=== PATIENT | male | born 1985 | race Caucasian/White ===

== ENCOUNTER 2021-02-13 10:57 | Emergency (ER) | payer BC, SELFPAY ==
[2021-02-13 11:04] VITALS: BP 145/92; PULSE 92; RESP 16; TEMP 37
--- NOTE | 2021-02-13 11:30 | ED.ANXIETY ---
HPI - Anxiety General Chief Complaint: Anxiety Stated Complaint: ANXIETY Source: patient and RN notes reviewed History of Present Illness HPI narrative: This is a 35-year-old male that presented to urgent care with complaints of feeling anxious. According to patient Thursday he started to feel anxious and was unable to relieve anxiety. Patient notes that he did recently take 5 days of prednisone for sinus infection. He is presently on Lexapro for anxiety. He notes that his heart felt as if it was racing he did not record his heart rate on his cell phone the highest heart rate that I saw was 112. Patient does not have a cardiac history and believes that his symptoms are related to his anxiety. He did try to contact his primary care physician who manages his anxiety she is currently out of town. I informed patient I will give him a short dose of antianxiety medication but he will need to follow-up with his primary care physician. The patient denies SOB, CP, palpitation, extremity numbness, lightheadedness, dizziness, constipation, diarrhea, chills, or fever. EKG completed sinus rhythm heart rate of 78 MD complaint: anxiety and heart racing Related Data Home Medications Medication Instructions Recorded Confirmed escitalopram oxalate mg 02/13/21 Allergies Allergy/AdvReac Type Severity Reaction Status Date / Time No Known Allergies Allergy Verified 02/13/21 11:07 Review of Systems Review of Systems: A 14 organ system Review of Systems was performed and pertinent positives included in the HPI, otherwise remaining ROS is negative. [facility] Family History Family History (Updated 02/13/21 @ 11:33 by GERHARD Beltre) Other Family history non-contributory Exam Narrative: GENERAL: This is a well-nourished, well-developed patient, in no apparent distress. HEAD: normocephalic, atraumatic. EYES: PERRL. Sclera clear/white. Vision is grossly intact. EARS: External ears normal, auditory canals clear and without drainage, TMs normal without perforation. Hearing grossly intact. NOSE: External nose normal with no obvious nasal discharge, nares without redness, no rhinorrhea. THROAT: Mucous membranes moist, posterior pharynx clear. NECK: Neck supple, non-tender without lymphadenopathy, masses or thyromegaly. CARDIOVASCULAR: Regular rate and rhythm without murmurs, gallops, or rubs. RESPIRATORY: Clear to auscultation. Breath sounds equal bilaterally. No wheezes, rales, or rhonchi. GASTROINTESTINAL: Abdomen soft, non-tender, nondistended. Bowel sounds are active. No hepato-splenomegaly, or palpable masses. No guarding. SKIN: warm, intact with no suspicious lesions or rash, good texture and turgor. NEURO: awake, alert, and oriented to person, place and time. There were no obvious focal neurologic abnormalities. Steady gait EXTREMITIES: Normal range of motion. No edema. No calf tenderness. Negative Homans sign bilaterally. BACK: Nontender without deformity or crepitance. No flank tenderness. Course Course Emergency Course: Patient will be given a short dose of Ativan hydroxyzine he will need to follow-up with his primary care physician Vital Signs Vital signs: Vital Signs Temperature 98.6 F 02/13/21 11:04 Pulse Rate 92 02/13/21 11:04 Respiratory Rate 16 02/13/21 11:04 Blood Pressure 145/92 H 02/13/21 11:04 Temperature 98.6 F 02/13/21 11:04 Pulse Rate 92 02/13/21 11:04 Respiratory Rate 16 02/13/21 11:04 Blood Pressure 145/92 H 02/13/21 11:04 MDM - Anxiety Differential Diagnosis Differential diagnosis: Likely hyperventilation, panic disorder and acute anxiety Discharge Plan Discharge Clinical Impression: Acute anxiety Patient Disposition: Home, Self-Care Condition: Stable Instructions: Antibiotic Form, Anxiety (ED) Additional Instructions: What can be done to prevent this health problem? Learn to manage stress. Use relaxation methods like reflection, deep breathing, and muscl
--- NOTE | 2021-02-13 11:49 | ECG_ITS ---
Measurements Intervals [place] Rate: 78 P: 58 NC: 146 QRS: 59 QRSD: 89 T: 36 QT: 343 QTc: 391 Interpretive Statements SINUS RHYTHM MINIMAL Q WAVES- INFERIOR LEADS BORDERLINE ECG Electronically Signed On 02-13-2021 14:15:57 CDT by Jordin Hilton D.O.
== END 2021-02-13 11:39 | disposition home or self-care (01) ==
PROVIDERS: Emergency Provider Nurse Practitioner; PCP Family Medicine
DX: F41.9 Anxiety disorder, unspecified (principal)
CPT/HCPCS: 93005; 99213; G0463

== ENCOUNTER → 2021-04-01 09:13 | Outpatient (CLI) | payer BC, SELFPAY ==
--- NOTE | ~2021-04-01 | CT_ITS ---
EXAMINATION: CT sinus wo con DATE: 04/01/2021 09:37 INDICATION: Allergies. TECHNIQUE: Computed tomography (CT) of the paranasal sinuses was performed without intravenous contra st. The dose-length product was 295.05 mGy-cm. Automated exposure control and iterative reconstructio n technique were employed. COMPARISON: None FINDINGS: Paranasal sinuses and mastoids are pneumatized. There is mild mucosal thickening of the eth moid sinuses. No air-fluid levels. No mucoperiosteal reaction. Ostiomeatal units are patent. Rightwar d nasal septal deviation. IMPRESSION: 1. Mild ethmoid sinus disease. 2: Rightward nasal septal deviation. Reviewed, dictated and finalized at location B.
== END ==
PROVIDERS: PCP Family Medicine; Visit Provider Otolaryngology
DX: J01.90 Acute sinusitis, unspecified (principal); T78.40XA Allergy, unspecified, initial encounter; J32.0 Chronic maxillary sinusitis; J34.2 Deviated nasal septum; J34.3 Hypertrophy of nasal turbinates; J34.89 Other specified disorders of nose and nasal sinuses; R09.81 Nasal congestion; J32.2 Chronic ethmoidal sinusitis
CPT/HCPCS: 70486

== ENCOUNTER 2024-06-16 18:16 | Emergency (ER) | payer BC, SELFPAY ==
--- NOTE | ~2024-06-16 | XR_ITS ---
XR hand LT 2V Ordering provider: Yocasta Flowers History: . FALL DEFORMITY . Comparison: None. FINDINGS: BONES: Fracture in the distal metaphysis of the left radius with posterior angulation. Fracture of th e ulnar styloid is seen with displacement. Possible triquetral fracture seen posteriorly JOINT SPACES: Well maintained. SOFT TISSUES: Unremarkable. IMPRESSION: Fracture distal radius metaphysis with fracture in the ulnar styloid. Possible fracture in the triquetral bone. Reviewed, dictated and finalized at location A. F MACHINE OPERATOR
--- NOTE | ~2024-06-16 | XR_ITS ---
XR wrist LT 2V Ordering provider: John Dejesus MD History: . reduction . Comparison: June 16, 2024 FINDINGS: BONES: Fracture in the distal metaphysis of the left radius with improved alignment. Other fractures are unchanged. JOINT SPACES: Well maintained. SOFT TISSUES: Normal. IMPRESSION: Improved alignment of the fractures in the distal metaphysis of the left radius Reviewed, dictated and finalized at location A. TENANCE AIDE
--- NOTE | ~2024-06-16 | XR_ITS ---
XR wrist LT 2V Ordering provider: Yocasta Flowers History: . FALL, DEFORMITY . Comparison: None. FINDINGS: BONES: Fracture of the distal metaphysis of the left radius with posterior angulation.Fracture of the ulnar styloid with displacement. Highly suggestive fracture of the triquetral bone. JOINT SPACES: Well maintained. SOFT TISSUES: Normal. IMPRESSION: Fracture distal radius metaphysis. Fracture ulnar styloid Possible fracture of the triquetral bone. Reviewed, dictated and finalized at location A. ORY MACHINE COMPUTER OPERATOR
[2024-06-16 19:02] VITALS: BP 167/110; PULSE 93; RESP 20; TEMP 36.7; O2SAT 100
[2024-06-16] MEDS: HYDROmorphone HCL INJ (*CRX) 1 MG/ML SYR IV PUSH (20:01)
[2024-06-16] MEDS: ONDANSETRON INJ 4 MG/2 ML VIAL IV PUSH (20:08)
--- NOTE | 2024-06-16 20:41 | ED.GENADULT ---
HPI - General Adult General Chief complaint: Extremity Injury, Upper Stated complaint: L HAND/WRIST INJURY WHILE ICE SKATING Time Seen by Provider: 06/16/24 19:44 History of Present Illness HPI narrative: patient is a 39-year-old male who presents to the ER with deformity to the left wrist. He was ice skating when he fell forward breaking his fall with his arm. Did not lose consciousness. No numbness or tingling in the fingers. 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 Related Data Home Medications ?Medication ?Instructions ?Recorded ?Confirmed ?Last Taken ?Type escitalopram oxalate 10 mg tablet mg 02/13/21 03/26/21 Unknown History amoxicillin 875 mg-potassium 1 tablet PO BID 03/26/21 03/26/21 Unknown History clavulanate 125 mg tablet (Augmentin) Allergies Allergy/AdvReac Type Severity Reaction Status Date / Time No Known Allergies Allergy Verified 06/16/24 19:41 Review of Systems Constitutional: Constitutional: Reports no additional constitutional complaints Musculoskeletal: Musculoskeletal: Reports arthralgias and Reports joint swelling Integumentary/Breasts: Skin/Breast: Reports system reviewed and no additional complaints, except as docu Neurologic: Reports system reviewed and no additional complaints, except as documented PMFSH Past Medical History Medical History (Updated 06/16/24 @ 20:52 by John Dejesus MD) Healthy adult male Surgical History Surgical History (Updated 06/16/24 @ 20:46 by John Dejesus MD) No pertinent past surgical history Family History Family History Father Hypertension Depression Mother Hypertension Depression Heart disease Other Family history non-contributory Social History Social History Smoking status: Never smoker Alcohol intake: current Substance use: never Substance use type: does not use Exam Narrative: GENERAL: Well-appearing, well-nourished, and in no acute distress. HEAD: Normocephalic, atraumatic. ENT: Mucous membranes moist. CHEST: Clear to auscultation. No respiratory distress. HEART: Regular rate and rhythm. Normal peripheral pulses. EXTREMITIES: Left wrist with swelling and deformity. Neurovascularly intact distal to the injury. No elbow tenderness. SKIN: Warm, dry, no rash. NEURO: Alert and oriented x3. PSYCH: Normal mood and affect. Course Course Emergency Course: Tolerated reduction well. Contacted Ortho and will arrange close follow-up. Discharge with sling and pain medication. Recommend elevating affected extremity. Return precautions given. Vital Signs Vital signs: Vital Signs Temperature 98.0 F 06/16/24 19:02 Pulse Rate 93 06/16/24 19:02 Respiratory Rate 20 06/16/24 19:02 Blood Pressure 167/110 H 06/16/24 19:02 Pulse Oximetry 100 06/16/24 19:02 Temperature 98.0 F 06/16/24 19:02 Pulse Rate 93 06/16/24 19:02 Respiratory Rate 20 06/16/24 19:02 Blood Pressure 167/110 H 06/16/24 19:02 Pulse Oximetry 100 06/16/24 19:02 Procedures Orthopedic Fracture Reduction Fracture #1: Fracture Reduction date: 06/16/24 Side: left Fracture Reduction Location: radius Analgesia: other (dilaudid 1mg) Pre-Procedure Neuro Vascular Exam: normal Technique: direct manipulation Post Reduction X-rays Demonstrate: acceptable reduction Post-reduction neuro exam: intact Post-reduction vascular exam: intact (sugar tong) Splint Applied: Yes Patient Tolerated Procedure: well Medical Decision Making Vital Signs Vital Signs: Vital Signs Temperature 98.0 F 06/16/24 19:02 Pulse Rate 93 06/16/24 19:02 Respiratory Rate 20 06/16/24 19:02 Blood Pressure 167/110 H 06/16/24 19:02 Pulse Oximetry 100 06/16/24 19:02 Temperature 98.0 F 06/16/24 19:02 Pulse Rate 93 06/16/24 19:02 Respiratory Rate 20 06/16/24 19:02 Blood Pressure 167/110 H 06/16/24 19:02 Pulse Oximetry 100 06/16/24 19:02 Imaging Data Radiologist's impression: ITS Impressions Hand X-Ray 06/16/24 19:12 IMPRESSION: Fracture distal radius metaphysis with fracture in the ulnar styloid. Possible fracture in the triquetral bone. Wrist X-Ray 06/16/24 19:16 IMPRESSION: Fracture distal radius metaphysis. Fracture ulnar styloid Possible fracture of the triquetral bone. Wrist X-Ray 06/16/24 20:37 IMPRESSION: Improved alignment of the fractures in the distal metaphysis of the left radius Discharge Plan Discharge Clinical Impression: Distal radius fracture, left, Fracture of ulnar styloid, Fracture of triquetral bone of left wrist Patient Disposition: Home, Self-Care Condition: Stable Instructions: Arm Fracture in Adults (ED), How to Use a Sling (ED) Additional Instructions: Return the ER if you have increased pain, you suffered a new injury, or your fingers are blue and numb. If you do have increased numbness you should loosen your splint. You should elevate her arm to decrease swelling. Patient Language: Chadian Prescriptions: New hydrocodone-acetaminophen 5-325 mg tablet 1 tablet PO Q6H PRN (Reason: pain) Qty: 20 0RF No Action escitalopram oxalate 10 mg tablet amoxicillin-pot clavulanate [Augmentin] 875-125 mg tablet 1 tablet PO BID Follow-up/Referrals: [place],Echo Stauffer APRN [Primary Care Provider] - 1 Week
== END 2024-06-16 21:31 | disposition home or self-care (01) ==
PROVIDERS: Emergency Provider Emergency Medicine; PCP Nurse Practitioner
DX: S59.292A Other physeal fracture of lower end of radius, left arm, initial encounter for closed fracture (principal); S52.612A Displaced fracture of left ulna styloid process, initial encounter for closed fracture; S62.112A Displaced fracture of triquetrum [cuneiform] bone, left wrist, initial encounter for closed fracture; Y93.21 Activity, ice skating; V00.211A Fall from ice-skates, initial encounter
CPT/HCPCS: 25605; 73100; 73120; 96374; 96375; 99284; A4565; J1171; J2405

== ENCOUNTER 2024-06-23 00:06 | Day surgery (SDC) | payer BC, SELFPAY ==
[2024-06-17 14:42] VITALS: BMI 29.5
--- NOTE | 2024-06-17 14:50 | PC.NURSE ---
Report to the Outpatient Waiting Room, entrance under the green pavilion located off [facility], at time _0600_ on date _[id number]_. Planned Procedure Time: _0730_.? Time changes happen often and if your time is changed the preop area will call you the afternoon before. - You and your visitor will be asked to self-screen and do not enter if you have any COVID symptoms. Please call surgeon if you need to reschedule. - A mask is optional within the hospital at this time. Patients may have clear liquids (water, carbonated beverages, clear teas, apple juice) until 3 hours prior to surgery with a maximum of 20 ounces. - No food from midnight until time of surgery and no smoking. This includes no chewing gum, candy or mints. Take only the following medications with a SIP of water on the morning of surgery: __Citalopram, Flonase and if needed Hydrocodone.____ DO NOT STOP ANY OF YOUR OTHER PRESCRIPTION MEDICATIONS PRIOR TO SURGERY EXCEPT THE FOLLOWING Medications to discontinue per physician ____None No Ibuprofen or Naproxen until after surgery Please no make-up, nail belizean, hairspray, perfume, deodorant, or body powder the day of surgery.? No jewelry (including any body piercings) or valuables the day of surgery, leave them at home.? Please take a shower or bath the night before, or the morning of, surgery with an antibacterial soap.? Wear comfortable, loose fitting clothing.? - Jewelry must be removed prior to entering the operating room.? Rings and piercings that are not removed may be cut off. - The hospital will not accept responsibility for valuables.? - Please leave all valuables, including medications, at home the day of surgery. If you are going home after surgery, a licensed transit mixer driver must drive you home.? - NO public transportation without another adult if you receive anesthesia. - We recommend that an adult stay with you for 24 hours following discharge. - We also recommend that you do not drive, make important decision, drink alcoholic beverages, or take any drugs that were not prescribed by your health care provider for at least 24 hours after your discharge time. Follow any additional instructions given to you from your surgeon. Telephone instructions given to _Cristiano___and asked if any additional questions and then verbalized understanding. Patient advised to call surgeon office or pre surgery nurse liaison [phone] if any additional questions.
[2024-06-23] VITALS (10 sets, daily range): BP systolic 86–135; BP diastolic 58–102; PULSE 85–103; RESP 14–20; TEMP 35.7–36.1; O2SAT 95–100; BMI 29.1
--- NOTE | ~2024-06-23 | XR_ITS ---
INTRAOPERATIVE FLUOROSCOPY: CLINICAL HISTORY: 39 years old Male; ORIF LEFT WRIST PROCEDURE COMMENTS: Limited intraoperative fluoroscopy of the left wrist was performed. CUMULATIVE DOSE: 0.48 mGy FLUOROSCOPY TIME: 10.3 seconds FINDINGS/IMPRESSION: Please refer to operative note for further details. Reviewed, dictated and finalized at location A. K TESTER
--- NOTE | 2024-06-23 06:51 | WPDANESEPPF ---
Anes - Initial Pre Proc Eval Procedure: Operation Date: 06/23/24 07:30 Proposed Procedures p Open Reduction Internal Fixation Left Wrist Fracture - Horacio Winslow MD Date/Time: 06/23/24 06:51 Surgeon: Horacio Winslow MD Pre Op Diagnosis: Left Wrist Fracture Patient Data Age: 39 Gender: M Height: 1.75 m Weight: 90.9 kg Allergies Allergy/AdvReac Type Severity Reaction Status Date / Time No Known Allergies Allergy Verified 06/17/24 14:40 Home Medications ?Medication ?Instructions ?Recorded ?Confirmed ?Type citalopram 40 mg tablet 40 mg PO DAILY 06/17/24 06/17/24 History fexofenadine 60 mg tablet (Iva 60 mg PO DAILY 06/17/24 06/17/24 History Allergy) fluticasone propionate 50 1 spray intranasal DAILY 06/17/24 06/17/24 History mcg/actuation nasal spray,suspension (Flonase Allergy Relief) hydrocodone 5 mg-acetaminophen 325 1 tablet PO Q6H PRN pain #20 tabs 06/17/24 06/17/24 Rx mg tablet testosterone enanthate 75 mg/0.5 75 mg subcut WEEKLY 06/17/24 06/17/24 History mL subcutaneous auto-injector (Xyosted) Patient hx anesthesia problems: none Family hx anesthesia problems: none Results Review: All pre-operative results and documents have been reviewed as part of the pre-operative evaluation. [facility], [facility] Past Medical History Medical History (Updated 06/23/24 @ 06:52 by Kirit Turner MD) Overweight NELLA (obstructive sleep apnea) Anxiety History of torsion of testis Surgical History Surgical History (Updated 06/23/24 @ 06:52 by Kirit Turner MD) History of nasal septoplasty H/O vasectomy History of oral surgery Family History Family History Father Hypertension Depression Mother Hypertension Depression Heart disease Other Family history non-contributory Social History Social History Social History: caffeine use Smoking status: Never smoker Alcohol intake: current Substance use: never Substance use type: does not use Occupation/Education: occupation 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 Informed Consent: The patient's anesthetic plan and its attendant risks and benefits were discussed with the patient/family/POA. Questions were solicited and answers provided to the satisfaction of the patient/family/POA.
[2024-06-23] MEDS: LACTATED RINGERS 1,000 ML 30 ML IV CONT ×2 (06:55→08:55)
[2024-06-23] MEDS: ACETAMINOPHEN 500 MG TABLET 1000 MG PO (07:11)
[2024-06-23] MEDS: KETOROLAC 15 MG/ML VIAL (*BKC) IV PUSH (07:11)
--- NOTE | 2024-06-23 07:17 | WPDHPUPDATE1 ---
History and Physical Update Update Date/Time: 06/23/24 07:17 History and Physical has been reviewed, including an updated exam of the patient. There are NO changes in the patient's condition. Risks, benefits, and alternatives have been discussed and questions answered. Patient agrees to proceed with procedure.
[2024-06-23] MEDS: ceFAZolin 2 GM/D5W 50 ML 2 GM/50 ML BAG IVPB (07:29)
[2024-06-23] MEDS: BUPivacaine HCL 0.5% 10 ML AMP 20 ML INFILTRATE (07:58)
--- NOTE | 2024-06-23 09:09 | W.PM.PROC2 ---
Procedure Note - Detailed Date of Procedure 06/23/24 Pre-op Diagnosis Left Wrist Fracture Post-op Diagnosis Same Procedure Performed Open reduction internal fixation left wrist distal radius fracture, intra-articular, greater than 3 fragments. Surgeon Horacio Winslow MD Mock Up Builder 1st grants assistant Anesthesia General Indications 39-year-old gentleman fell while ice skating sustained a left distal radius intra-articular fracture with comminution. Presents for operative treatment. Description of Procedure After informed consent the operative extremity was marked in the preoperative holding area. Patient received intravenous antibiotics. Patient taken to the operating room where they underwent general anesthesia. Positioned supine on operating table. Time-out performed confirming the patient, patient's site of surgery and the plan. Left upper extremity prepped and draped in the usual sterile surgical fashion using a ChloraPrep skin solution. Hand and wrist exsanguinated and arm tourniquet inflated to 225 mmHg. Standard volar flexor carpi radialis incision utilized. Fifteen blade knife used to make longitudinal incision. Flexor carpi radialis tendon identified tendon sheath incised in line with skin incision. Tendon retracted to protect the neurovascular elements. Floor of the tendon sheath incised with a 15 blade knife. Flexor pollicis retracted medial. pronator quadratus then divided off the watershed line and reflected ulnarward to expose the distal radius and the fracture. Fracture was then reduced provisionally pinned. Image intensification confirm reduction. Fixation achieved with the distal radius volar plate. This was provisionally pinned into place and confirmed with image intensification. Fixation to the proximal fragment with a 3.5 mm screw. Distal fracture fixation achieved with 2.0 mm locking pegs and 2.0 mm fully threaded locking screws for the radial styloid. Fixation was then completed proximally with the remaining 3.5 mm screws. Final reduction of the fracture, alignment of the wrist joint and placement of the hardware verified with image intensification. Wound thoroughly irrigated with antibiotic solution. Pronator repaired with 3 0 Monocryl interrupted suture. Skin closed with interrupted subcutaneous 000 Monocryl interrupted suture and running 000 Monocryl subcuticular stitch. Local anesthetic with 0.5% Marcaine. Sterile dressing applied. Padded dressing and splint then applied. Tourniquet released and good capillary refill noted in the fingers and thumb. Patient awoke from anesthesia, extubated and taken to the recovery room in stable condition. All sponge and instrument counts correct at the end of case. Implants Biomet distal radius volar locking plate Estimated Blood Loss 5 Tourniquet Time Total Tourniquet Time: 60 Drains No Packing No Pathology None sent Complications None Condition Stable Disposition PACU [facility] Billing Surgery - Charge Forward: Surgery Billing ([id number])
[2024-06-23] MEDS: fentaNYL CITRATE INJ (*CRX) 100 MCG/2 ML VIAL 25 MCG IV PUSH ×4 (09:24→09:48)
[2024-06-23] MEDS: oxyCODONE HCL (*CRX) 5 MG TAB IR PO (10:26)
== END 2024-06-23 11:10 | disposition home or self-care (01) ==
PROVIDERS: PCP Nurse Practitioner; Visit Provider Orthopaedic Surgery
PROC: (CPT 25575; principal; 2024-06-23 07:30)
DX: S52.572A Other intraarticular fracture of lower end of left radius, initial encounter for closed fracture (principal); W01.0XXA Fall on same level from slipping, tripping and stumbling without subsequent striking against object, initial encounter; Y93.51 Activity, roller skating (inline) and skateboarding; G47.33 Obstructive sleep apnea (adult) (pediatric); F41.9 Anxiety disorder, unspecified; Z79.891 Long term (current) use of opiate analgesic; Z98.890 Other specified postprocedural states; Z87.718 Personal history of other specified (corrected) congenital malformations of genitourinary system; Z82.49 Family history of ischemic heart disease and other diseases of the circulatory system
CPT/HCPCS: 25609; 99199; A9270; C1713; J0171; J0690; J1100; J1171; J1885; J2003; J2250; J2405; J2704; J3010; J7120